=== PATIENT | female | born 1980 | race Caucasian/White ===

== ENCOUNTER 2022-12-08 10:43 | Emergency (ER) | payer OTHER, MEDICAID, SELFPAY ==
[2022-12-08 10:50] VITALS: BP 125/85; PULSE 70; RESP 14; TEMP 36.5; O2SAT 99; BMI 29.5
--- NOTE | 2022-12-08 11:00 | ED_ITS ---
HPI - Recheck/Abnormal Lab/Rx <Dianne Ontiveros PA-C - Last Filed: 12/08/22 13:31> General Chief Complaint: Recheck/Abnormal Lab/Rx Stated Complaint: shingles flair, covid symptoms Time Seen by Provider: 12/08/22 10:55 Source: patient Mode of arrival: Ambulatory History of Present Illness HPI narrative: 42-year-old female presents with multiple concerns. She states that since she had COVID about 4 weeks ago she has had persistent symptoms including fevers at night, feeling chilled, headaches, persistent cough episodes, intermittent sharp ear pains, dizzy sensation when she moves her eyes, she states she also feels like she has brain fog and mid back pain, generalized back and neck achiness, states the tip of her tongue has been sore the last few days unsure she may have burned it, also states that she is had some vision symptoms with bright light sensation occasionally bilateral eyes in the last few days patient endorses a history of glaucoma and wonders if this is related. Patient states that she had COVID and was out of work because of this for a little while, she then returned to work after she was feeling better but immediately got sick again with the above symptoms which she has had for about 7-10 days. Pt also feels she has had a UTI possibly for about a week, she states she started having left flank pain a week ago and then has noticed her urine has been darker and smells bad despite drinking a lot of water. Patient states that she thinks she is having a shingles outbreak on the right arm as she has some bumps on her right arm, some of which have been present for over a month but 1 is new and clustered developing in the last 4 days, she states she has some ?nerve pain? there and had a shingles outbreak in late October and this looks similar. Also endorses persistent issues with PTSD and racing thoughts though she notes she is medicated for these. She states she does not have a primary care provider, recently moved to [place] from [place]. Patient denies high or persistent fevers, chest pain or other symptoms Related Data Home Medications Medication Instructions Recorded Confirmed prazosin 1 mg capsule 1 - 2 mg PO BEDTIME PRN night 12/08/22 12/08/22 terrors propranolol 10 mg tablet 10 - 20 mg PO BID PRN Anxiety 12/08/22 12/08/22 trazodone 100 mg tablet 200 mg PO BEDTIME Insomnia 12/08/22 12/08/22 Previous Rx's Medication Instructions Recorded benzonatate 100 mg capsule 100 mg PO TID PRN cough #30 caps 12/08/22 valacyclovir 1 gram tablet 1,000 mg PO TID 10 days #30 tabs 12/08/22 Allergies Allergy/AdvReac Type Severity Reaction Status Date / Time No Known Drug Allergies Allergy Verified 12/08/22 10:55 Patient History <Dianne Ontiveros PA-C - Last Filed: 12/08/22 13:31> Medical History (Updated 12/08/22 @ 12:34 by Dianne Ontiveros PA-C) Anxiety Insomnia Night terrors Social History Smoking Status: Current every day smoker Smoking Status: Current every day smoker alcohol intake frequency: 0-2 drinks per day Substance Use Type: marijuana Exam <Dianne Ontiveros PA-C - Last Filed: 12/08/22 13:31> Narrative Exam Narrative: GENERAL: 42 year old patient appears stated age. Overweight patient, in mild distress. HEAD: Atraumatic. Normocephalic. EYES: Pupils equal round and reactive. Extraocular motions intact. Patient reports discomfort with performing EOMs however no nystagmus is noted, there is no tenderness around the eyes, No scleral icterus. No injection or drainage. ENT: Nose without bleeding, purulent drainage. Throat without erythema, tonsilla r hypertrophy or exudate. Airway patent. Bilateral ear canals normal in appearance, bilateral TMs are pearly pickard with cone of light visible. NECK: Trachea midline. There is mild bilateral tender tonsillar and superior anterior cervical chain lymphadenopathy, there is some muscle tightness of the paraspinal muscles of the cervical region with slight tenderness noted, otherwise Non tender CARDIOVASCULAR: Regular rate and rhythm without murmurs, gallops, or rubs. RESPIRATORY: Clear to auscultation. Breath sounds equal bilaterally. No wheezes, rales, or rhonchi. GASTROINTESTINAL: Abdomen soft, non-tender, nondistended, some left CVA tenderness with percussion. EXTREMITIES: No edema or joint tenderness. BACK: Nontender without deformity or crepitance. No flank tenderness. NEURO: AOx3. SKIN: There is approximately 2 cm patch that is erythematous with tiny cluster lesions present on patient's right shoulder, over the deltoid, additionally there are a few scattered erythematous small less than 5 mm lesions on patient's right arm that appear older/healing. There are a few non annular lesions on patient's forehead on the left side above the left eyebrow that appear to be unrelated/inconsistent with appearance of arm lesions. No other rash or erythema of visible areas Initial Vital Signs Initial Vital Signs: Vital Signs Temperature 97.7 F 12/08/22 10:50 Pulse Rate 70 12/08/22 10:50 Respiratory Rate 14 12/08/22 10:50 Blood Pressure 125/85 12/08/22 10:50 Pulse Oximetry 99 12/08/22 10:50 Oxygen Delivery Method Room Air 12/08/22 10:50 <Hubert Green DO - Last Filed: 12/08/22 13:48> Initial Vital Signs Initial Vital Signs: Vital Signs Temperature 97.7 F 12/08/22 10:50 Pulse Rate 70 12/08/22 10:50 Respiratory Rate 14 12/08/22 10:50 Blood Pressure 125/85 12/08/22 10:50 Pulse Oximetry 99 12/08/22 10:50 Oxygen Delivery Method Room Air 12/08/22 10:50 Course <Dianne Ontiveros PA-C - Last Filed: 12/08/22 13:31> Orders Ordered: ED Orders 12/08/22 11:02 Covid-19 + FLU A/B + RSV - PCR Stat 12/08/22 11:16 XR chest 2V Stat Discontinued Medications Ketorolac Tromethamine (Ketorolac 30 Mg/Ml Vial) 30 mg IM NOW ONE Stop: 12/08/22 12:04 Last Admin: 12/08/22 12:48 Dose: 30 mg Documented By: REUBEN Vital Signs Vital signs: Vital Signs - 8 hr 12/08/22 10:50 12/08/22 12:53 Temperature 97.7 F 97.5 F L Pulse Rate 70 50 L Respiratory Rate 14 18 Blood Pressure 125/85 137/82 Pulse Oximetry 99 99 Oxygen Delivery Method Room Air Room Air <DO Lg Richard Last Filed: 12/08/22 13:48> Orders Ordered: ED Orders 12/08/22 11:02 Covid-19 + FLU A/B + RSV - PCR Stat 12/08/22 11:16 XR chest 2V Stat Discontinued Medications Ketorolac Tromethamine (Ketorolac 30 Mg/Ml Vial) 30 mg IM NOW ONE Stop: 12/08/22 12:04 Last Admin: 12/08/22 12:48 Dose: 30 mg Documented By: REUBEN Vital Signs Vital signs: Vital Signs - 8 hr 12/08/22 10:50 12/08/22 12:53 Temperature 97.7 F 97.5 F L Pulse Rate 70 50 L Respiratory Rate 14 18 Blood Pressure 125/85 137/82 Pulse Oximetry 99 99 Oxygen Delivery Method Room Air Room Air MDM - Recheck/Abnormal Lab/Rx <Dianne Ontiveros PA-C - Last Filed: 12/08/22 13:31> Differential Diagnosis Differential diagnosis: Likely other (Viral illness,UTI, generalized symptoms, shingles outbreak, COVID) Medical Records Attestation: I reviewed the patient's medical records. Lab Data Attestation: I reviewed the patient's lab results. Labs: Lab Results 12/08/22 Range/Units 11:02 SARS-CoV-2 (PCR) Positive H (Negative) Influenza A (RT-PCR) Flu a negative (NEGATIVE) Influenza B (RT-PCR) Flu b negative (NEGATIVE) RSV (PCR) Negative (Negative) Point of Care Testing Test Results Negative Urine Dip Bedside Urine Glucose Negative Bedside Urine Bilirubin - Negative Bedside Urine Ketone - Negative Urine Specific [place] 1.020 Bedside Urine Occult Blood - Negative Bedside Urine pH 6.0 Bedside Urine Protein - Negative Bedside Urine Urobilinogen - Negative Bedside Urine Nitrite - Negative Bedside Urine Leukocytes - Negative Esterase Imaging Data Chest x-ray: My Impression: Agree with radiology interpretation Radiologist's Impression: [address] [address] XRay Report Signed Patient: Jessica Alfaro MR#: [id number] : 1980 Acct:[id number] Age/Sex: 42 / F Date of Service: 12/08/22 Loc: ED Accession Number: [id number] ?? Procedure: XR chest 2V Ordering Provider: Dianne Ontiveros P.A-C PROCEDURE:? XR CHEST 2V ? INDICATIONS:? 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 TECHNIQUE:? 2 views of the chest were acquired.? ? COMPARISON:? None. ? FINDINGS:? ? Surgical changes and devices:? None.? ? Lungs and pleura:? Lungs are clear.? No pleural effusions or pneumothorax.? ? Mediastinum:? Mediastinal contours are normal.? Heart size is normal.? ? Bones and chest wall:? No suspicious bony abnormalities.? Soft tissues appear unremarkable.? Anterior wedging of multiple midthoracic vertebral bodies, slightly exaggerated kyphosis. ? IMPRESSION:? No acute cardiopulmonary process. ? ? ? Dictated by: John Ritter M.D. on 12/08/2022 at 11:48 ? ? Approved by: John Ritter M.D. on 12/08/2022 at 11:49?? Treatment and disposition Shared decision making:: Shared decision-making was used in determining plan for care in the emergency department evaluation and plan for outpatient follow-up MDM Narrative Medical decision making narrative: This is a 42-year-old woman with history of PTSD, multiple shingles flares most recently 1 month ago, COVID infection 4 weeks ago who presents with concern for possible persistent COVID symptoms. Patient has numerous symptoms and complaints that have been persistent for the past 3-4 weeks since her COVID infection been, although did endorse improving and we worsening. Also some concern for UTI in the past week, and headache and fevers and some body aches in the past few days, also concern for shingles given a new patch of clustered lesion on her right shoulder. Patient is retested today and is positive for COVID, suspect that this may be a reinfection rather than persistent positive test although the latter is also a possibility. She is given Toradol today for her headache and body aches, UA is unremarkable, she is a negative test. Chest x-ray is obtained given she is had a mild persistent cough this also is unremarkable, not suggestive of cardiopulmonary acute findings or etiology for her symptoms. Do think it is reasonable to treat the patient for shingles, given her history and exam finding today of patchy cluster lesion on her right shoulder, I do think most of her other symptoms are likely related to a viral reinfection, or persistent symptoms from COVID infection about 4 weeks ago. Additional labs are not obtained today, patient has unremarkable vitals otherwise generally well-appearing on exam with no specific concerning findings except as above. Patient is advised to take Tylenol and ibuprofen as needed, monitor for new or worsening symptoms, prescription for cough medicine provided today. Return precautions provided, follow-up plan discussed, all questions answered. <Hubert Green, DO - Last Filed: 12/08/22 13:48> Lab Data Labs: Lab Results 12/08/22 Range/Units 11:02 SARS-CoV-2 (PCR) Positive H (Negative) Influenza A (RT-PCR) Flu a negative (NEGATIVE) Influenza B (RT-PCR) Flu b negative (NEGATIVE) RSV (PCR) Negative (Negative) Point of Care Testing Test Results Negative Urine Dip Bedside Urine Glucose Negative Bedside Urine Bilirubin - Negative Bedside Urine Ketone - Negative Urine Specific [place] 1.020 Bedside Urine Occult Blood - Negative Bedside Urine pH 6.0 Bedside Urine Protein - Negative Bedside Urine Urobilinogen - Negative Bedside Urine Nitrite - Negative Bedside Urine Leukocytes - Negative Esterase Discharge Plan Departure Patient Disposition: Home Clinical Impression: COVID-19, Flu-like symptoms, Shingles outbreak Activity Restrictions/Additional Instructions: *You have been diagnosed with [COVID-19 infection, shingles outbreak] *What to do: *Please continue to take your regular medications as directed. [2 ] New medication prescriptions sent to your pharmacy: [Valacyclovir (for shingles) and benzonatate, the benzonatate is for your cough] [ ] New medication written as a paper prescription [ ] No new medications given *Please follow up with your primary care provider in 2-3 days, call for an appointment. Let them know you were seen in the Emergency Department and that we ask that you be seen in follow up. We will electronically transmit a record of today's note if your PCP is in our system. You had a positive COVID test today. It is certainly possible that your recent symptoms are due to a reinfection with COVID as they fit with viral illness, it is also possible that you are still testing positive from the COVID infection you had about 4 weeks ago. I do recommend you get plenty of rest and monitor for new or worsening symptoms. Your chest x-ray look good today urine also looked good today no evidence of UTI or pneumonia. *If you do not have a primary care provider please contact the [facility] Resource line at [phone]. They will ask some questions about your medical history and help get you set up with a doctor in the community. I strongly encourage you to work on getting established with a PCP so you can get follow-up and regular care. *Return to Emergency Department if you should have any new, worsening or concerning symptoms, such as [fever greater than 101 F, shaking chills, worsening pain, persistent vomiting or other bothersome symptoms] Prescriptions: New benzonatate 100 mg capsule 100 mg PO TID PRN (Reason: cough) Qty: 30 1RF valacyclovir 1 gram tablet 1,000 mg PO TID 10 Days Qty: 30 0RF No Action prazosin 1 mg capsule 1 - 2 mg PO BEDTIME PRN (Reason: night terrors) Patient Comments: Take 1 to 2 capsules by mouth nightly as needed for night terrors propranolol 10 mg tablet 10 - 20 mg PO BID PRN (Reason: Anxiety) Patient Comments: Take 1 to 2 tablets by mouth as needed for anxiety up to twice a day trazodone 100 mg tablet 200 mg PO BEDTIME Patient Comments: Take 2 tablets by mouth nightly Referrals: Miscellaneous,Doctor, MD [Primary Care Provider] - Stand Alone Forms: Patient Portal/API <Hubert Green, DO - Last Filed: 12/08/22 13:48> [facility] Dr Green Co-Sign Statement: I was available for consultation during this patient's emergency department visit. This chart is signed by myself for administrative purposes only. I did not have direct contact with this patient during this visit. They were seen independently by the APC.
--- NOTE | 2022-12-08 11:16 | DI.RAD.S_ITS ---
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 COMPARISON: None. FINDINGS: Surgical changes and devices: None. Lungs and pleura: Lungs are clear. No pleural effusions or pneumothorax. Mediastinum: Mediastinal contours are normal. Heart size is normal. Bones and chest wall: No suspicious bony abnormalities. Soft tissues appear unremarkable. Anterior wedging of multiple midthoracic vertebral bodies, slightly exaggerated kyphosis. IMPRESSION: No acute cardiopulmonary process. Dictated by: John Ritter M.D. on 12/08/2022 at 11:48 Approved by: John Ritter M.D. on 12/08/2022 at 11:49
[2022-12-08 11:49] LABS: Influenza A - CEPHEID Flu A NEGATIVE (NEGATIVE); Influenza B - CEPHEID Flu B NEGATIVE (NEGATIVE); Respiratory Syncytial Virus Negative (Negative)
[2022-12-08 11:59] LABS: COVID-19 CEPHEID 4-PLEX PCR POSITIVE (Negative)
[2022-12-08] MEDS: KETOROLAC 30 MG/ML VIAL IM (12:48)
[2022-12-08 12:53] VITALS: BP 137/82; PULSE 50; RESP 18; TEMP 36.4; O2SAT 99
== END 2022-12-08 12:58 | disposition home or self-care (01) ==
PROVIDERS: Emergency Provider Student in an Organized Health Care Education/Training Program
DX: U07.1 COVID-19 (principal); B02.9 Zoster without complications
CPT/HCPCS: 0241U; 71046; 81003; 81025; 96372; 99283; 99284; J1885

== ENCOUNTER 2022-12-14 09:39 | Emergency (ER) | payer OTHER, MEDICAID, SELFPAY ==
[2022-12-14 09:45] VITALS: BP 154/91; PULSE 81; RESP 20; TEMP 36.8; O2SAT 97; BMI 26.6
--- NOTE | 2022-12-14 09:48 | ED_ITS ---
HPI - General Adult General Chief complaint: Psychiatric Symptoms Stated complaint: scared/rash on body/mental health issues Time Seen by Provider: 12/14/22 09:40 History of Present Illness HPI narrative: 42-year-old female smoker presents with a chief complaint of body aches burning in her chest, swollen lymph nodes, elevated temperature to as high as 100. She was seen and evaluated for similar symptoms a few days ago and found to be positive for COVID. She is nauseated but denies any vomiting. She is most concerned about a very sparse rash that she has on her back and arms. She is feeling quite depressed on the whole and states that she had been diagnosed with COVID about 1 month ago but did not tell her work about it and apparently when they found out she was working with COVID she was let go. Per the patient she has lost her house in the aftermath and is also caring for her father who has dementia. Related Data Home Medications Medication Instructions Recorded Confirmed prazosin 1 mg capsule 1 - 2 mg PO BEDTIME PRN night 12/08/22 12/14/22 terrors propranolol 10 mg tablet 10 - 20 mg PO BID PRN Anxiety 12/08/22 12/14/22 trazodone 100 mg tablet 200 mg PO BEDTIME Insomnia 12/08/22 12/14/22 Previous Rx's Medication Instructions Recorded valacyclovir 1 gram tablet 1,000 mg PO TID 10 days #30 tabs 12/08/22 alprazolam 0.25 mg tablet (Xanax) 0.25 mg PO TID PRN anxiety #7 tabs 12/14/22 Allergies Allergy/AdvReac Type Severity Reaction Status Date / Time No Known Drug Allergies Allergy Verified 12/08/22 10:55 Review of Systems Review of Systems Narrative: GENERAL: See HPI HEENT: See HPI RESPIRATORY: See HPI CARDIOVASCULAR: Denies chest pain, palpitations, orthopnea, edema, GASTROINTESTINAL: See HPI : Denies dysuria, frequency, incontinence, hematuria, urinary retention. MUSCULOSKELETAL: denies weakness, joint pain, or bony pain SKIN: Denies rash, skin lesions, or other NEUROLOGIC: Denies weakness, headache, numbness, change in speech, confusion, seizures, incoordination. PSYCHIATRIC: See HPI 12 point review of systems is negative except for those stated above Patient History Medical History Anxiety Insomnia Night terrors Social History Smoking Status: Current every day smoker Smoking Status: Current every day smoker alcohol intake frequency: 0-2 drinks per day Substance Use Type: marijuana Exam Narrative Exam Narrative: GENERAL: [42] year old patient appears stated age. Well-developed patient, in mild distress. Anxious and tearful HEAD: Atraumatic. Normocephalic. EYES: Pupils equal round and reactive. Extraocular motions intact. No scleral icterus. No injection or drainage. ENT: Moist mucous membrane Nose without bleeding, purulent drainage. Throat without erythema, tonsillar hypertrophy or exudate. Airway patent. NECK: Trachea midline. Non tender, no obvious lymphadenopathy CARDIOVASCULAR: Regular rate and rhythm without murmurs, gallops, or rubs. RESPIRATORY: Clear to auscultation. Breath sounds equal bilaterally. No wheezes, rales, or rhonchi. GASTROINTESTINAL: Abdomen soft, non-tender, nondistended. EXTREMITIES: No edema or joint tenderness. BACK: Nontender without deformity or crepitance. No flank tenderness. NEURO: AOx3. SKIN: Few small scabs noted on arms and back, no significant rash, urticaria, maculopapular rash or other Initial Vital Signs Initial Vital Signs: Vital Signs Temperature 98.3 F 12/14/22 09:45 Pulse Rate 81 12/14/22 09:45 Respiratory Rate 20 12/14/22 09:45 Blood Pressure 154/91 H 12/14/22 09:45 Pulse Oximetry 97 12/14/22 09:45 Oxygen Delivery Method Room Air 12/14/22 09:45 Course Orders Ordered: ED Orders 12/14/22 09:54 Respiratory Panel (Film Array) Stat 12/14/22 09:57 Chest [XR chest 1V] Stat 12/14/22 10:13 Acetaminophen Stat Complete Blood Count AUTO DIFF Stat Comprehensive Metabolic Panel Stat Ethanol (ETOH) Stat Lactate (Lactic Acid) Stat Magnesium Stat Salicylate Stat 12/14/22 10:39 Urine Drug Screen, Rapid Stat Discontinued Medications Sodium Chloride (Normal Saline 0.9%) 1,000 mls @ 1,000 mls/hr IV BOLUS ONE Stop: 12/14/22 10:54 Last Admin: 12/14/22 10:12 Dose: 1,000 mls/hr Documented By: HODA Ketorolac Tromethamine (Ketorolac 30 Mg/Ml Vial) 15 mg IV NOW ONE Stop: 12/14/22 10:24 Last Admin: 12/14/22 10:51 Dose: 15 mg Documented By: HODA Vital Signs Vital signs: Vital Signs - 8 hr 12/14/22 09:45 Temperature 98.3 F Pulse Rate 81 Respiratory Rate 20 Blood Pressure 154/91 H Pulse Oximetry 97 Oxygen Delivery Method Room Air Medical Decision Making Lab Data 12/14/22 10:13 12/14/22 10:13 Labs: Lab Results 12/14/22 12/14/22 12/14/22 Range/Units 09:54 10:13 10:13 WBC 9.2 (4.5-11.0) X10^3/uL RBC 4.17 (4.0-5.2) X10^6/uL Hgb 13.0 (12.0-16.0) g/dL Hct 38.3 (36-46) % MCV 91.9 (80-100) fL MCH 31.2 (26-34) PG MCHC 34.0 (30-36) % RDW 13.7 (11.6-14.8) % Plt Count 369 (150-400) X10^3/uL Neut % (Auto) 55.5 (50-75) % Lymph % (Auto) 31.5 (25-40) % Sampson % (Auto) 9.2 (3-14) % Eos % (Auto) 2.8 (2-4) % Baso % (Auto) 1.0 (0-2) % Neut # (Auto) 5100 (7267-6605) /uL Lymph # (Auto) 2900 (4367-6227) /uL Sampson # (Auto) 800 (0-900) /uL Eos # (Auto) 300 (0-450) /uL Baso # (Auto) 100 (0-100) /uL Sodium (137-145) mmol/L Potassium (3.4-5.1) mmol/L Chloride (98-107) mmol/L Carbon Dioxide (22-32) mmol/L BUN (7-17) mg/dL Creatinine (0.52-1.04) mg/dL Estimated GFR (>60) mL/min BUN/Creatinine Ratio (6-22) Glucose (70-100) mg/dL Lactate (0.7-2.1) mmol/L Calcium (8.4-10.2) mg/dL Magnesium (1.6-2.3) mg/dL Total Bilirubin (0.2-1.3) mg/dL AST (14-36) IU/L ALT (<35) IU/L Alkaline Phosphatase (38-126) U/L Total Protein (6.3-8.2) g/dL Albumin (3.5-5.0) g/dL Globulin (1.7-4.1) g/dL Albumin/Globulin Ratio (1.0-2.8) Salicylates < 1.0 (<20) mg/dL U Opiates 300ng/mL cut (Negative) Ur Oxycodone Screen (Negative) Urine Methadone Screen (Negative) Acetaminophen < 10 (10-30) ug/mL Ur Barbiturates Screen (Negative) U Tricyclic Antidepress (Negative) Ur Phencyclidine Scrn (Negative) Ur Amphetamines Screen (Negative) U Methamphetamines Scrn (Negative) Ur MDMA Scrn (Ecstasy) (Negative) U Benzodiazepines Scrn (Negative) Urine Cocaine Screen (Negative) U Marijuana (THC) Screen (Negative) Ethyl Alcohol < 10 ( - 10) mg/dL Chlamy pneumoniae PCR Not detected (Not Detect) Adenovirus (PCR) Not detected (Not Detect) B. pertussis DNA (PCR) Not detected (Not Detecte) B.parapertussis DNA PCR Not detected (Not Detecte) Coronavirus OC43 (PCR) Not detected (Not Detect) Coronavirus HKU1 (PCR) Not detected (Not Detect) Coronavirus 229E (PCR) Not detected (Not Detect) SARS-CoV-2 (PCR) Not detected (Not Detecte) Coronavirus NL63 (PCR) Not detected (Not Detect) Human Metapneumovir PCR Not detected (Not Detect) Influenza Type A (PCR) Not detected (Not Detect) Influenza Type B (PCR) Not detected (Not Detect) M. pneumoniae (PCR) Not detected (Not Detect) Parainfluenza 1 (PCR) Not detected (Not Detect) Parainfluenza 2 (PCR) Not detected (Not Detect) Parainfluenza 3 (PCR) Not detected (Not Detect) Parainfluenza 4 (PCR) Not detected (Not Detect) RSV (PCR) Not detected (Not Detect) Entero/Rhino (PCR) Not detected (Not Detect) 12/14/22 12/14/22 12/14/22 Range/Units 10:13 10:13 10:39 WBC (4.5-11.0) X10^3/uL RBC (4.0-5.2) X10^6/uL Hgb (12.0-16.0) g/dL Hct (36-46) % MCV (80-100) fL MCH (26-34) PG MCHC (30-36) % RDW (11.6-14.8) % Plt Count (150-400) X10^3/uL Neut % (Auto) (50-75) % Lymph % (Auto) (25-40) % Sampson % (Auto) (3-14) % Eos % (Auto) (2-4) % Baso % (Auto) (0-2) % Neut # (Auto) (9566-3815) /uL Lymph # (Auto) (3391-7258) /uL Sampson # (Auto) (0-900) /uL Eos # (Auto) (0-450) /uL Baso # (Auto) (0-100) /uL Sodium 136 L (137-145) mmol/L Potassium 4.1 (3.4-5.1) mmol/L Chloride 103 (98-107) mmol/L Carbon Dioxide 27 (22-32) mmol/L BUN 11 (7-17) mg/dL Creatinine 0.64 (0.52-1.04) mg/dL Estimated GFR > 60 (>60) mL/min BUN/Creatinine Ratio 17.2 (6-22) Glucose 88 (70-100) mg/dL Lactate 0.9 (0.7-2.1) mmol/L Calcium 8.7 (8.4-10.2) mg/dL Magnesium 2.2 (1.6-2.3) mg/dL Total Bilirubin 0.3 (0.2-1.3) mg/dL AST 23 (14-36) IU/L ALT 26 (<35) IU/L Alkaline Phosphatase 102 (38-126) U/L Total Protein 7.8 (6.3-8.2) g/dL Albumin 4.6 (3.5-5.0) g/dL Globulin 3.2 (1.7-4.1) g/dL Albumin/Globulin Ratio 1.4 (1.0-2.8) Salicylates (<20) mg/dL U Opiates 300ng/mL cut Negative (Negative) Ur Oxycodone Screen Negative (Negative) Urine Methadone Screen Negative (Negative) Acetaminophen (10-30) ug/mL Ur Barbiturates Screen Negative (Negative) U Tricyclic Antidepress Negative (Negative) Ur Phencyclidine Scrn Negative (Negative) Ur Amphetamines Screen Negative (Negative) U Methamphetamines Scrn Negative (Negative) Ur MDMA Scrn (Ecstasy) Negative (Negative) U Benzodiazepines Scrn Negative (Negative) Urine Cocaine Screen Negative (Negative) U Marijuana (THC) Screen Positive H (Negative) Ethyl Alcohol ( - 10) mg/dL Chlamy pneumoniae PCR (Not Detect) Adenovirus (PCR) (Not Detect) B. pertussis DNA (PCR) (Not Detecte) B.parapertussis DNA PCR (Not Detecte) Coronavirus OC43 (PCR) (Not Detect) Coronavirus HKU1 (PCR) (Not Detect) Coronavirus 229E (PCR) (Not Detect) SARS-CoV-2 (PCR) (Not Detecte) Coronavirus NL63 (PCR) (Not Detect) Human Metapneumovir PCR (Not Detect) Influenza Type A (PCR) (Not Detect) Influenza Type B (PCR) (Not Detect) M. pneumoniae (PCR) (Not Detect) Parainfluenza 1 (PCR) (Not Detect) Parainfluenza 2 (PCR) (Not Detect) Parainfluenza 3 (PCR) (Not Detect) Parainfluenza 4 (PCR) (Not Detect) RSV (PCR) (Not Detect) Entero/Rhino (PCR) (Not Detect) Point of Care Testing Test Results Negative Urine Dip Bedside Urine Glucose Negative Bedside Urine Bilirubin - Negative Bedside Urine Ketone - Negative Urine Specific [place] 1.010 Bedside Urine Occult Blood - Negative Bedside Urine pH 6.5 Bedside Urine Protein - Negative Bedside Urine Urobilinogen - Negative Bedside Urine Nitrite - Negative Bedside Urine Leukocytes - Negative Esterase Point of care testing: Point of Care Testing Test Results Negative Urine Dip Bedside Urine Glucose Negative Bedside Urine Bilirubin - Negative Bedside Urine Ketone - Negative Urine Specific [place] 1.010 Bedside Urine Occult Blood - Negative Bedside Urine pH 6.5 Bedside Urine Protein - Negative Bedside Urine Urobilinogen - Negative Bedside Urine Nitrite - Negative Bedside Urine Leukocytes - Negative Esterase MDM Narrative Medical decision making narrative: [42] year old patient presents with multiple symptoms including body aches, low- grade temperature, nausea, fine rash, chest congestion Multiple etiologies for patient's symptoms considered including, but not limited to: [COVID with expected symptoms, flu, pneumonia versus other] Prior Charts reviewed in our EMR Primary Historian: patient Labs reviewed and interpreted by myself: No significant abnormalities, no l eukocytosis or left shift, no signs of anemia, electrolytes and renal function within normal. Today's respiratory panel without abnormal findings Imaging reviewed: Chest x-ray shows no infiltrate Patient's symptoms improved over duration of stay with above-stated therapies. Patient feeling tremendous improvement after fluids and some Toradol. Discomfort is controlled, she is tolerating orals. She does state she still feels a bit anxious but very clearly denies any suicidal or homicidal ideation. She states that she already has help pursuing housing, disability, another insurance knees and does not have an interest in talking with social work. Findings and discharge diagnosis discussed with patient/family followed by verbalization of understanding Return precautions discussed with patient/family whom verbalize understanding of diagnosis and plan Discharge Plan Departure Patient Disposition: Home Clinical Impression: Acute viral syndrome Instructions: DI for Viral Syndrome Activity Restrictions/Additional Instructions: *You have been diagnosed with [various symptoms related to viral syndrome. As we discussed your blood work and chest x-ray are reassuring and there is no e vidence of any significant abnormality requiring a specific intervention] *What to do: *Please continue to take your regular medications as directed. [ x] New medication prescriptions sent to your pharmacy: [[facility] ] [ ] New medication written as a paper prescription [ ] No new medications given *Please follow up with your primary care provider in 2-3 days, call for an appointment. Let them know you were seen in the Emergency Department and that we ask that you be seen in follow up. We will electronically transmit a record of today's note if your PCP is in our system *If you do not have a primary care provider please contact the [facility] Resource line at [phone]. They will ask some questions about your medical history and help get you set up with a doctor in the community. *Return to Emergency Department if you should have any new, worsening or concerning symptoms Prescriptions: New alprazolam [Xanax] 0.25 mg tablet 0.25 mg PO TID PRN (Reason: anxiety) Qty: 7 0RF No Action prazosin 1 mg capsule 1 - 2 mg PO BEDTIME PRN (Reason: night terrors) Patient Comments: Take 1 to 2 capsules by mouth nightly as needed for night terrors propranolol 10 mg tablet 10 - 20 mg PO BID PRN (Reason: Anxiety) Patient Comments: Take 1 to 2 tablets by mouth as needed for anxiety up to twice a day trazodone 100 mg tablet 200 mg PO BEDTIME Patient Comments: Take 2 tablets by mouth nightly valacyclovir 1 gram tablet 1,000 mg PO TID 10 Days Qty: 30 0RF Referrals: Miscellaneous,Doctor, MD [Primary Care Provider] - Stand Alone Forms: Patient Portal/API
--- NOTE | 2022-12-14 09:57 | DI.RAD.S_ITS ---
PROCEDURE: XR CHEST 1V INDICATIONS: SOB, chest tightness TECHNIQUE: One view of the chest was acquired. COMPARISON: [facility], CR, XR CHEST 2V, 12/08/2022, 11:11. FINDINGS: Surgical changes and devices: None. Lungs and pleura: Lungs are clear. No pleural effusions or pneumothorax. Mediastinum: Mediastinal contours appear normal. Heart size is normal. Bones and chest wall: No suspicious bony lesions. Overlying soft tissues appear unremarkable. IMPRESSION: No acute cardiopulmonary disease. Dictated by: Ken Crow M.D. on 12/14/2022 at 10:27 Approved by: Ken Crow M.D. on 12/14/2022 at 10:27
[2022-12-14] MEDS: SODIUM CHLORIDE 0.9% 1,000 ML 1000 ML IV (10:12)
[2022-12-14 10:21] LABS: Add Manual Diff / Slide Review NO; Basophils Absolute Auto 100 /uL (0-100); Eosinophils Absolute Auto 300 /uL (0-450); Eosinophils Percent Auto 2.8 % (2-4); Hematocrit 38.3 % (36-46); Lymphocytes Absolute Auto 2900 /uL (1100-4500); Lymphocytes Percent Auto 31.5 % (25-40); Mean Corpuscular Hemoglobin 31.2 PG (26-34); Mean Corpuscular Volume 91.9 fL (80-100); Monocytes Absolute Auto 800 /uL (0-900); Monocytes Percent Auto 9.2 % (3-14); Neutrophils Absolute Auto 5100 /uL (1500-7000); Neutrophils Percent Auto 55.5 % (50-75); Platelet Count 369 X10^3/uL (150-400); Red Blood Cell Count 4.17 X10^6/uL (4.0-5.2); Red Cell Distribution Width 13.7 % (11.6-14.8); White Blood Cell Count 9.2 X10^3/uL (4.5-11.0)
[2022-12-14 10:41] LABS: Acetaminophen < 10 ug/mL (10-30); Ethanol (ETOH) < 10 mg/dL; Lactate (Lactic Acid) 0.9 mmol/L (0.7-2.1); Salicylate < 1.0 mg/dL (<20)
[2022-12-14 10:42] LABS: Alanine Aminotransferase 26 IU/L (<35); Albumin 4.6 g/dL (3.5-5.0); Albumin Globulin Ratio 1.4 (1.0-2.8); Alkaline Phosphatase 102 U/L (38-126); Aspartate Aminotransferase 23 IU/L (14-36); BUN Creatinine Ratio 17.2 (6-22); Bilirubin Total 0.3 mg/dL (0.2-1.3); Blood Urea Nitrogen 11 mg/dL (7-17); Calcium 8.7 mg/dL (8.4-10.2); Carbon Dioxide 27 mmol/L (22-32); Chloride 103 mmol/L (98-107); Estimated Glomerular Filt Rate > 60 mL/min (>60); Globulin 3.2 g/dL (1.7-4.1); Glucose 88 mg/dL (70-100); HEMOLYSIS < 15 (0-50); Magnesium 2.2 mg/dL (1.6-2.3); Potassium 4.1 mmol/L (3.4-5.1); Sodium 136 mmol/L (137-145); Total Protein 7.8 g/dL (6.3-8.2)
[2022-12-14] MEDS: KETOROLAC 30 MG/ML VIAL 15 MG IV (10:51)
[2022-12-14 11:02] LABS: Adenovirus Not Detected (Not Detect); B. parapertussis Not Detected (Not Detecte); Bordetella pertussis Not Detected (Not Detecte); Chlamydophila pneumoniae Not Detected (Not Detect); Coronavirus 229E Not Detected (Not Detect); Coronavirus HKU1 Not Detected (Not Detect); Coronavirus NL 63 Not Detected (Not Detect); Coronavirus OC43 Not Detected (Not Detect); Human Metapneumovirus Not Detected (Not Detect); Human Rhinovirus/Enterovirus Not Detected (Not Detect); Influenza A Not Detected (Not Detect); Influenza B Not Detected (Not Detect); Mycoplasma pneumoniae Not Detected (Not Detect); Parainfluenza Virus 1 Not Detected (Not Detect); Parainfluenza Virus 2 Not Detected (Not Detect); Parainfluenza Virus 3 Not Detected (Not Detect); Parainfluenza Virus 4 Not Detected (Not Detect); Respiratory Syncytial Virus Not Detected (Not Detect); SARS- CoV-2 Not Detected (Not Detecte)
[2022-12-14 11:07] LABS: Ur Creatinine Normal (Normal); Ur Specific Gravity Normal (Normal); Urine pH Normal (Normal)
[2022-12-14 11:08] LABS: UR Morphine/Opiate cutoff 300 Negative (Negative); Urine Amphetamines Negative (Negative); Urine Barbiturates Negative (Negative); Urine Benzodiazepines Negative (Negative); Urine Cocaine Negative (Negative); Urine MDMA Negative (Negative); Urine Methadone Negative (Negative); Urine Methamphetamines Negative (Negative); Urine Oxycodone Negative (Negative); Urine Phencyclidine Negative (Negative); Urine Tetrahydrocannabinol Positive (Negative); Urine Tricyclic Antidepressant Negative (Negative)
[2022-12-14 11:20] VITALS: BP 153/94; PULSE 63; RESP 16; O2SAT 98
== END 2022-12-14 11:30 | disposition home or self-care (01) ==
PROVIDERS: Emergency Provider Emergency Medicine
DX: B34.9 Viral infection, unspecified (principal); Z20.822 Contact with and (suspected) exposure to COVID-19; Z86.16 Personal history of COVID-19
CPT/HCPCS: 36415; 71045; 80053; 80305; 80320; 80329; 81003; 81025; 83605; 83735; 85025; 87633; 96374; 99284; 99285; G0480; J1885